=== PATIENT | female | born 1980 | race Caucasian/White ===

== ENCOUNTER 2018-12-14 06:05 | Inpatient (IN) | payer OTHER ==
[~2018-12-14] VITALS: Ht 165.1 cm; Wt 87.5 kg
[2018-12-14] MEDS ORDERED: MAGNESIUM/ALUMINUM HYDROXIDE/SIMETHICONE 30ML UDC PO STA (07:55)
[2018-12-14] MEDS ORDERED: ONDANSETRON HCL 4MG/2ML INJ IV STA (07:55)
[2018-12-14 08:16] LABS: BASOPHILS % 0.3 % (0.0-2.0); EOSINOPHILS % 10.7 % (0.0-5.0); HEMATOCRIT. 34.2 % (36.0-48.0); HEMOGLOBIN. 11.2 g/dL (12.0-16.0); LYMPHOCYTES % 8.8 % (20.0-50.0); MEAN CORPUSCULAR HEMOGLOBIN 25.4 pg (28.0-32.0); MEAN CORPUSCULAR VOLUME 77.5 fL (81.0-99.0); MEAN PLATELET VOLUME 8.6 fl (7.4-10.4); MONOCYTES % 7.5 % (2.0-8.0); NEUTROPHILS % 72.7 % (40.0-76.0); PLATELET 166 x1000/uL (130-400); RED BLOOD CELL COUNT 4.42 mill/uL (4.2-5.4); RED CELL DISTRIBUTION WIDTH 30.3 % (11.6-14.6)
[2018-12-14 08:17] LABS: CHLORIDE 110 mEq/L (98-107)
[2018-12-14 08:19] LABS: PROTHROMBIN TIME 10.7 sec (9.6-11.0)
[2018-12-14 08:27] LABS: CLARITY URINE CLOUDY (CLEAR); COLOR URINE AMBER (YELLOW); KETONES URINE NEGATIVE (NEGATIVE); LEUKOCYTE ESTERASE URINE NEGATIVE (NEGATIVE); NITRITE URINE NEGATIVE (NEGATIVE); OCCULT BLOOD URINE NEGATIVE (NEGATIVE); PROTEIN URINE NEGATIVE (NEGATIVE); SPECIFIC GRAVITY URINE 1.012 (1.005-1.030)
[2018-12-14 09:02] LABS: PLATELET ESTIMATE NORMAL
[2018-12-14] MEDS ORDERED: SODIUM CHLORIDE 0.9% 1,000 ML IV ONE (10:33)
[2018-12-14 14:30] VITALS: BP 98/50
[2018-12-14] MEDS ORDERED: ACETAMINOPHEN 325MG TABLET PO PRN (14:30)
[2018-12-14] MEDS ORDERED: HYDROMORPHONE HCL/PF 2MG/ML CPJ IV PRN (14:30)
[2018-12-14] MEDS ORDERED: ONDANSETRON HCL 4MG/2ML INJ IV PRN (14:30)
[2018-12-14] MEDS ORDERED: HYDROCODONE/ACETAMINOPHEN 5/325MG TABLET PO PRN (14:30)
[2018-12-14 16:08] VITALS: BP 98/50
[2018-12-14] MEDS: PANTOPRAZOLE SODIUM 40 MG/VIAL IV SCH (17:09)
[2018-12-14] MEDS ORDERED: LEVO100T9 MT (19:56)
[2018-12-14 20:00] VITALS: BP 101/51
[2018-12-15] VITALS: BP 90/43
[2018-12-15 04:00] VITALS: BP 90/46
[2018-12-15 06:51] LABS: HEMATOCRIT. 30.8 % (36.0-48.0); HEMOGLOBIN. 10.3 g/dL (12.0-16.0); MEAN CORPUSCULAR HEMOGLOBIN 25.9 pg (28.0-32.0); MEAN CORPUSCULAR VOLUME 77.6 fL (81.0-99.0); MEAN PLATELET VOLUME 9.1 fl (7.4-10.4); PLATELET 151 x1000/uL (130-400); RED BLOOD CELL COUNT 3.97 mill/uL (4.2-5.4); RED CELL DISTRIBUTION WIDTH 29.7 % (11.6-14.6)
[2018-12-15 07:08] LABS: CHLORIDE 111 mEq/L (98-107)
[2018-12-15 07:26] LABS: HDL CHOLESTEROL 51 mg/dL (40-59); LDL CHOLESTEROL 81 mg/dL (5-100)
[2018-12-15 08:00] VITALS: BP 96/47
[2018-12-15] MEDS: DEXT 5%/0.45% NACL 1000ML 1,000 ML IV SCH (10:55)
[2018-12-15] MEDS: PANTOPRAZOLE SODIUM 40 MG/VIAL IV SCH (10:57)
[2018-12-15 11:03] LABS: PLATELET ESTIMATE NORMAL
[2018-12-15 12:00] VITALS: BP 89/51
[2018-12-15 16:00] VITALS: BP 98/50
[2018-12-15 20:00] VITALS: BP 81/40
[2018-12-16] VITALS: BP 112/49
[2018-12-16 04:00] VITALS: BP 94/63
[2018-12-16] MEDS: DEXT 5%/0.45% NACL 1000ML 1,000 ML IV SCH (05:33)
[2018-12-16 07:55] LABS: HEMATOCRIT. 30.3 % (36.0-48.0); HEMOGLOBIN. 10.1 g/dL (12.0-16.0); MEAN PLATELET VOLUME 9.1 fl (7.4-10.4); PLATELET 130 x1000/uL (130-400); RED BLOOD CELL COUNT 3.89 mill/uL (4.2-5.4); RED CELL DISTRIBUTION WIDTH 29.2 % (11.6-14.6)
[2018-12-16 08:00] VITALS: BP 96/59
[2018-12-16] MEDS: PANTOPRAZOLE SODIUM 40 MG/VIAL IV SCH (08:39)
[2018-12-16 10:13] LABS: PLATELET ESTIMATE NORMAL
[2018-12-16 11:52] VITALS: BP 96/59
== END 2018-12-16 12:55 | disposition home or self-care (01) | DRG 282 ==
LOC: ER 07:22 → 6EST 11:22 → ENRESERV 14:04 → SUPCPDRO 14:28
PROVIDERS: ADMIT Hospitalist; ATTEND Hospitalist
DX: K85.90 Acute pancreatitis without necrosis or infection, unspecified (principal); E05.90 Thyrotoxicosis, unspecified without thyrotoxic crisis or storm; R74.0 Nonspecific elevation of levels of transaminase and lactic acid dehydrogenase [LDH]; Z90.49 Acquired absence of other specified parts of digestive tract
CPT/HCPCS: 36415; 71045; 74181; 76705; 80061; 96374; 99285; C9113; J2405; J7030

== ENCOUNTER 2020-09-09 23:58 | Emergency (ER) | payer OTHER ==
[~2020-09-09] VITALS: Ht 165.1 cm; Wt 84.0 kg
[~2020-09-09 23:58] MED LIST: LEVO100T9 MT
[2020-09-10] MEDS ORDERED: IBUPROFEN 600MG TABLET PO ONE (02:15)
[2020-09-10 04:30] VITALS: BP 135/76
== END 2020-09-10 04:31 | disposition home or self-care (01) ==
LOC: ER 23:58
DX: M25.571 Pain in right ankle and joints of right foot (principal); M79.631 Pain in right forearm; R03.0 Elevated blood-pressure reading, without diagnosis of hypertension; V43.52XA Car driver injured in collision with other type car in traffic accident, initial encounter; Y93.89 Activity, other specified; Y92.89 Other specified places as the place of occurrence of the external cause
CPT/HCPCS: 29515; 73090; 73590; 73610; 81025; 99284